=== PATIENT | male | born 1990 | race Caucasian/White ===

== ENCOUNTER 2022-11-14 15:38 | Emergency (ER) | payer MEDICAID ==
[2022-11-14] MEDS ORDERED: Lidocaine 1% with EPINEPHrine 1:100,000 50 ML MDV INJECT ONE (16:10)
== END 2022-11-14 16:37 | disposition home or self-care (01) ==
LOC: LB.ED 15:38
DX: S61.412A Laceration without foreign body of left hand, initial encounter (principal); Z88.0 Allergy status to penicillin; W26.8XXA Contact with other sharp object(s), not elsewhere classified, initial encounter
CPT/HCPCS: 12002; 99283

== ENCOUNTER 2024-11-16 15:59 | Emergency (ER) | payer MEDICAID ==
[2024-11-16 17:58] LABS: INFLUENZA A NAA NEGATIVE (NEGATIVE); INFLUENZA B NAA NEGATIVE (NEGATIVE); RESPIRATORY SYNCYTIAL VIR NAA NEGATIVE (NEGATIVE)
[2024-11-16 18:10] LABS: CORONAVIRUS COVID-19 NAA NEGATIVE (NEGATIVE)
[2024-11-16] MEDS ORDERED: Azithromycin 250 MG Tab ONE (19:00)
[2024-11-16 19:13] LABS: BASOPHILS ABSOLUTE AUTO 0.02 K/uL (0.02-0.10); BASOPHILS PERCENT AUTO 0.2 % (0.0-0.5); EOSINOPHILS ABSOLUTE AUTO 0.12 K/uL (0.04-0.40); HEMATOCRIT 37.5 % (40.0-54.0); HEMOGLOBIN 12.7 g/dL (13.0-18.0); LYMPHOCYTES ABSOLUTE AUTO 1.58 K/uL (1.50-4.00); LYMPHOCYTES PERCENT AUTO 12.6 % (20.0-40.0); MEAN CORPUSCULAR HEMOGLOBIN 28.3 pg (27.0-32.0); MEAN CORPUSCULAR HGB CONC 33.9 g/dL (31.0-35.0); MEAN CORPUSCULAR VOLUME 84 fL (76-96); MEAN PLATELET VOLUME 8.6 fL (6.0-10.0); MONOCYTES ABSOLUTE AUTO 1.34 K/uL (0.20-0.80); MONOCYTES PERCENT AUTO 10.7 % (3.0-10.0); NEUTROPHILS ABSOLUTE AUTO 9.47 K/uL (2.00-7.50); NEUTROPHILS PERCENT AUTO 75.5 % (45.0-70.0); PLATELET COUNT,PLT 258 K/uL (150-400); RED BLOOD CELL COUNT 4.49 M/uL (4.50-6.50); RED CELL DISTRIBUTION WIDTH 12.8 % (11.0-16.0); WHITE BLOOD CELL COUNT,WBC 12.5 K/uL (4.0-11.0)
== END 2024-11-16 19:37 | disposition home or self-care (01) ==
LOC: LB.ED 15:59
DX: R50.9 Fever, unspecified (principal); R05.9 Cough, unspecified; R51.9 Headache, unspecified
CPT/HCPCS: 0241U; 36415; 71045; 85025; 87651; 99284; A9270

== ENCOUNTER 2025-04-05 17:04 | Emergency (ER) | payer MEDICAID ==
[2025-04-05 19:27] LABS: BASOPHILS ABSOLUTE AUTO 0.03 K/uL (0.02-0.10); BASOPHILS PERCENT AUTO 0.2 % (0.0-0.5); EOSINOPHILS ABSOLUTE AUTO 0.13 K/uL (0.04-0.40); EOSINOPHILS PERCENT AUTO 0.9 % (1.0-5.0); LYMPHOCYTES ABSOLUTE AUTO 2.64 K/uL (1.50-4.00); LYMPHOCYTES PERCENT AUTO 18.2 % (20.0-40.0); MEAN PLATELET VOLUME 8.6 fL (6.0-10.0); MONOCYTES ABSOLUTE AUTO 1.79 K/uL (0.20-0.80); MONOCYTES PERCENT AUTO 12.4 % (3.0-10.0); NEUTROPHILS ABSOLUTE AUTO 9.89 K/uL (2.00-7.50); NEUTROPHILS PERCENT AUTO 68.3 % (45.0-70.0); PLATELET COUNT,PLT 196 K/uL (150-400); RED BLOOD CELL COUNT 4.52 M/uL (4.50-6.50); RED CELL DISTRIBUTION WIDTH 13.1 % (11.0-16.0); WHITE BLOOD CELL COUNT,WBC 14.5 K/uL (4.0-11.0)
== END 2025-04-05 19:53 | disposition home or self-care (01) ==
LOC: LB.ED 17:04
DX: J20.9 Acute bronchitis, unspecified (principal); E03.9 Hypothyroidism, unspecified; F17.200 Nicotine dependence, unspecified, uncomplicated; Z79.890 Hormone replacement therapy
CPT/HCPCS: 36415; 71046; 85025; 87428-QW; 99285; A9270-GY